=== PATIENT | male | born 1940 | race Caucasian/White ===

== ENCOUNTER 2016-11-10 15:35 | Emergency (ER) | payer OTHER ==
[2016-11-10 16:11] VITALS: RESP 16; O2SAT 94
--- NOTE | 2016-11-10 17:03 | EDPHY ---
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 This was purely mechanical not a syncopal episode. No loss of consciousness. No midline C-spine pain. No peripheral paresthesia, weakness, numbness. He is also complaining of pain just lateral to his right nipple. Has reproducible pain with palpation and inspiration. No abdominal pain. No dyspnea. REVIEW OF SYSTEMS: A ten point review of systems was performed and is negative with the exception of the items mentioned in the HPI PAST MEDICAL/SURGICAL HISTORY: Atrial fibrillation. Daily Pradaxa. 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 PHYSICAL EXAM 1) GENERAL: Well-developed, well-nourished, alert and oriented. Appears to be in no acute distress. Answering questions appropriately.He is telling jokes. Laughing. Appears quite well. 2) HEAD: Normocephalic, right temporal occipital region 4 cm laceration. 3) HEENT: Pupils equal, round, reactive to light bilaterally. Negative Horners. Nasopharynx, oropharynx, clear. No deformity or angulation of nose. No septal hematoma. No rhinorrhea. No oral trauma. Ears bilaterally with normal tympanic membranes. No hemotympanum. No fluid or blood in the external auditory canal. No raccoon eyes. No Odonnell sign. Teeth are normally aligned with no gross malocclusion, TMJ bilaterally nontender, facial bones nontender including the zygomatic arch, maxilla mandible. 4) NECK: No cervical collar is on. Posterior cervical spine is nontender, no stepoff, no effusion. Full range of motion which does not elicit any midline cervical spine pain, no posterior midline tenderness, no step-off. 5) LUNGS: Clear to auscultation bilaterally, no wheezes, no rhonchi, no retractions. No obvious signs of trauma. Tender to palpation lateral to his right nipple with no visible signs of trauma. No flaring, no grunting. Moving symmetrically. No crepitus. 6) HEART: Regular rate and rhythm, 7) ABDOMEN: No guarding, no rebound, no focal tenderness, no peritoneal signs, no signs of trauma, no ecchymosis 8) MUSCULOSKELETAL: Moving all extremities, no focal areas of tenderness, no obvious trauma. 9) BACK: No midline vertebral tenderness, no fluctuance, no step-off, no obvious trauma, no visual or palpable abnormality. 10) SKIN: scalp laceration DIFFERENTIAL DIAGNOSIS: Not necessarily in any particular order, my differential diagnosis includes, but is not limited to, concussion, skull fracture, intraparenchymal contusion, subarachnoid, subdural and epidural hematoma. The patient understands that this diagnosis is provisional and can never be 100% accurate. - Personal History Current Tetanus Diphtheria and Acellular Pertussis (TDAP): Yes Tetanus Vaccine Date: 2006 - Medical/Surgical History Hx Asthma: No Hx Chronic Respiratory Disease: No Hx Diabetes: No Hx Cardiac Disease: Yes Hx Renal Disease: No Hx Cirrhosis: Yes Hx Alcoholism: No Hx HIV/AIDS: No Hx Splenectomy or Spleen Trauma: No Other PMH: CARDIAC - a-fib, angioplasty, THYROID REMOVED , PSTD, MENTAL HEALTH - Social History Smoking Status: Never smoked Constitutional: Initial Vital Signs Temperature (C) 36.6 C 11/10/16 15:50 Heart Rate 68 11/10/16 15:50 Respiratory Rate 16 11/10/16 15:50 Blood Pressure 147/75 H 11/10/16 15:50 O2 Sat (%) 94 11/10/16 15:50 O2 Delivery Mode Room Air Allergies/Adverse Reactions: No Known Allergies Allergy (Verified 04/30/16 18:19) Home Medications: Medication Instructions Recorded Aspirin [Aspirin 81mg (*)] 81 mg PO HS 04/07/12 C/E/Zn/Cu/OM3/DHA/EPA/LUT/ZEAX 1 each PO BID 04/07/12 [Preservision Areds 2 Softgel] Dabigatran Etexilate Mesyl 150 mg PO BID 04/07/12 [Pradaxa 150 MG (*)] Multivitamins [Multivitamin (*)] 1 each PO DAILY 04/07/12 Sotalol HCl [Sotalol] 120 mg PO BID 04/07/12 Diazepam [Valium 5 MG (*)] 5 mg PO DAILY PRN 11/06/13 Herbals/Supplements -Info Only 1 each PO AD 11/06/13 Prazosin HCl 1 mg PO HS 04/30/16 Venlafaxine HCl [Venlafaxine 112.5 mg PO BID 04/30/16 37.5MG (*)] traMADol [Ultram 50 mg (*)] 50 - 100 mg PO DAILY PRN 04/30/16 Levothyroxine [Synthroid 137 mcg 137 mcg PO DAILY06 #30 tab 05/01/16 (*)] Atorvastatin Calcium [Lipitor 40 40 mg PO HS 08/21/16 mg (*)] Bisacodyl [Bisacodyl (*)] 10 mg PO PRN PRN 08/21/16 Cholecalciferol Vit D3 [Vitamin D3 2,000 units PO DAILY 08/21/16 2000 units tab (OTC)] Diltiazem HCl 30 mg PO BID 08/21/16 Hydrocodone/APAP 5/325 [[place] 2 each PO DAILY PRN 08/21/16 5/325 (*)] Magnesium Oxide [Magnesium Oxide 400 mg PO HS 08/21/16 400 mg (*)] Melatonin [Melatonin 3 MG (*)] 3 mg PO HS 08/21/16 Vitamin B Complex [B Complex] 1 each PO DAILY 08/21/16 diphenhydrAMINE [Benadryl 25 MG 25 mg PO HS 08/21/16 (*)] valACYclovir [Valtrex (*)] 1,000 mg PO DAILY PRN 08/21/16 Acetaminophen [Tylenol 325mg (*)] 325 - 650 mg PO Q4HRS PRN #0 tab 08/22/16 Pantoprazole Sodium [Protonix 40mg 40 mg PO DAILY #30 tab 08/22/16 (*)] Medical Decision Making - Diagnostics Imaging: CT Scan of the Head (Without Contrast) History: Trauma. Closed head injury following a fall in a 76-year-old male; comparison prior study March 25, 2014. Technique: Axial images were obtained from the base to the vertex. Axial images are obtained at 5 mm intervals and reformatted at 1.5 mm thickness. The examination is reviewed on the workstation at multiple window/level settings. Sagittal and coronal reformations are performed. Dose reduction techniques were utilized for this examination. Findings: There is no midline shift, hydrocephalus, parenchymal or subarachnoid bleeding. No extraaxial fluid collection is seen. There are no findings to suggest acute cortical ischemia. There is a scalp laceration seen in the right parieto-occipital region. Bone window evaluation does not show evidence of a skull fracture or pneumocephalus. The paranasal sinuses and mastoids are normally aerated. Impression: Negative noncontrast CT of the head with no intracranial posttraumatic sequela identified. Results called and discussed with Devin Mccabe PAC at 11/10/2016 17:34 Dictated By: Fox Keenan MD PA Chest and Right Ribs (5 views) History: Pain post trauma. Findings: PA chest - No evidence of pneumothorax, pleural effusion or pulmonary contusion. The mediastinum is not widened. Heart size is normal. Aortic tortuosity is noted. No obvious rib fracture is identified. Spinal degenerative changes are noted. Right ribs,4 views-a definite displaced rib fracture is not identified. Impression: Chest negative for acute abnormality with no displaced rib fracture identified and no pneumothorax seen. Images reviewed by myself Procedures: Procedure: Laceration repair. I explained the indications, risks and benefits for both laceration repair and anesthetic administration. Verbal consent was obtained from the patient . The laceration on the scalp was anesthetized using 0.5% bupivicaine with epinephrine . After anesthetic administered the patient was observed for a period of time and had no apparent adverse effects. The wound was cleaned, prepped, draped in normal sterile fashion and explored to its base. No foreign body seen, no foreign bodies palpated. There were no deep structures involved. No galea defects identified The wound was repaired with 6 mary. The wound repair was simple. The procedure was performed by myself. Patient has been informed that scarring will occur, although efforts have been made to minimize this. Procedure: Incentive spirometer teaching ED Course/Re-evaluation: Patient was re-evaluated with serial exams most recently at 6:10 p.m.. He is answering questions appropriately. No perseveration. He is walking around, smiling, making jokes. Discussed his negative CT imaging results. Discussed his chest x-ray. Has been given incentive spirometer. Discussed his head injury in the presence of Pradaxa. Offered admission For observation which he declines. He is here with his . I believe the 2 of them to have them to have decision-making capacity. He feels comfortable being discharged. She feels comfortable observing the patient. Usual customary head injury precautions and instructions provided. Departure - Departure Disposition: Home, Routine, Self-Care Clinical Impression: Scalp laceration Qualifiers: Encounter type: initial encounter Qualified Code(s): S01.01XA - Laceration without foreign body of scalp, initial encounter Head injury Qualifiers: Encounter type: initial encounter Qualified Code(s): S09.90XA - Unspecified injury of head, initial encounter Contusion of rib on right side Qualifiers: Encounter type: initial encounter Qualified Code(s): S20.211A - Contusion of right front wall of thorax, initial encounter Condition: Good Instructions: Head Injury (ED), Rib Contusion (ED) Additional Instructions: ALTHOUGH THERE IS NO EVIDENCE OF SERIOUS HEAD INJURY AT THIS TIME, DELAYED SIGNS CAN APPEAR 24 TO 48 HOURS AFTER INJURY. WE RECOMMEND THAT YOU DESIGNATE A FRIEND OR FAMILY MEMBER TO OBSERVE YOU OVER THE NEXT FEW DAYS TO ENSURE THAT YOUR CONDITION IS PROGRESSING NORMALLY. PLEASE RETURN TO THE EMERGENCY DEPARTMENT (ED) IMMEDIATELY IF YOU HAVE INCREASED HEADACHE, PERSISTENT HEADACHE , VOMITING, WEAKNESS, CONFUSION OR VISUAL PROBLEMS. Referrals: Tamera Baker MD [Primary Care Provider] - 1-2 days without fail Return, to the ER in 7 days for staple removal [Other] - 11/17/16
[2016-11-10] MEDS ORDERED: traMADol 50 MG TAB PO ONE (18:10)
[2016-11-10 18:21] VITALS: BP 143/87; PULSE 85; TEMP 99.5
== END 2016-11-17 11:00 | disposition home or self-care (01) ==
PROC: 0HQ0XZZ Repair Scalp Skin, External Approach (ICD-10-PCS; principal; 2016-11-10)
DX: S01.01XA Laceration without foreign body of scalp, initial encounter (principal); S20.211A Contusion of right front wall of thorax, initial encounter; Z79.82 Long term (current) use of aspirin; W01.0XXA Fall on same level from slipping, tripping and stumbling without subsequent striking against object, initial encounter; Y92.007 Garden or yard of unspecified non-institutional (private) residence as the place of occurrence of the external cause

== ENCOUNTER 2017-12-24 03:52 | Inpatient (IN) | payer OTHER ==
[2017-12-24] MEDS ORDERED: NS 1,000 ML IV ONE (04:13)
--- NOTE | 2017-12-24 04:13 | EDPHY ---
H & P Stated Complaint: BACK PAIN/ABD PAIN X 2 DAYS Time Seen by Provider: 12/24/17 04:13 HPI/ROS: HPI CHIEF COMPLAINT: Abdominal pain, back pain HISTORY OF PRESENT ILLNESS: Patient is a 77-year-old male, presents emergency room by private vehicle around 450 in the morning for abdominal pain and back pain. Patient states he was just in [place] taking photographs and this required him to go in and out of some braga that were heavy on bland. He had moved gait multiple times to go take pictures he states very heavy and he thinks maybe he injured his low back 2-3 days ago. Since then he has had ongoing low back pain. Pain is located lumbar spine. Does not radiate down his legs. Additionally reports that he has some abdominal pain and abdominal distension this is worse over the last 24 hr. He has no fever. He has not been vomiting. He denies diarrhea. States he ate a bowl of cereal for last night for dinner. He denies any chest pain or shortness of breath. Main complaint low back pain abdominal pain. Past Medical History: Hypertension, coronary artery disease without stents, atrial fib, PTSD Past Surgical History: Hernia repair, appendectomy Social History: Lives locally, at bedside. Denies drugs alcohol. Family History: Noncontributory ROS REVIEW OF SYSTEMS: A comprehensive 10 point review of systems is otherwise negative aside from elements mentioned in the history of present illness. Exam Constitutional elderly, frail triage nursing summary reviewed, vital signs reviewed, awake/alert. Eyes normal conjunctivae and sclera, EOMI, PERRLA. HENT normal inspection, atraumatic, dry mucus membranes, no epistaxis, neck supple/ no meningismus, no raccoon eyes. Respiratory clear to auscultation bilaterally, normal breath sounds, no respiratory distress, no wheezing. Cardiovascular rate normal, regular rhythm, no murmur, no edema, distal pulses normal. Gastrointestinal rather large protuberant distended abdomen tender throughout on palpation worse in the right lower quadrant Genitourinary no CVA tenderness. Musculoskeletal no midline vertebral tenderness, full range of motion, no calf swelling, no tenderness of extremities, no meningismus, good pulses, neurovascularly intact. Skin pink, warm, & dry, no rash, skin atraumatic. Neurologic awake, alert and oriented x 3, AAOx3, moves all 4 extremities equally, motor intact, sensory intact, CN II-XII intact, normal cerebellar, normal vision, normal speech. Psychiatric normal mood/affect. Heme/Lymph/Immune no lymphadenopathy. Differential diagnosis includes but is not limited to and in no particular order : Bowel obstruction, appendicitis, gallbladder disease, diverticulitis, colitis , enteritis, perforated viscus, gastritis, GERD, esophagitis, urinary tract infection, pyelonephritis, kidney stones Medical Decision Making: Plan for this patient due the abdominal pain will proceed with CT scan abdomen pelvis with IV contrast, check basic blood work, lactic acid, urinalysis and re-evaluate. Gentle IV hydration 1 L normal saline , IV Dilaudid for pain control. Re-evaluation: EKG interpretation by me on record in [facility] system. Impression time of EKG 4:34 a.m., sinus rhythm rate of [address] elevation no ST depression no significant T-wave abnormalities non specific intraventricular conduction delay. EKG is very similar previous EKGs in morphology CT scan abdomen pelvis with IV contrast called to me by Dr. Devin Peterson. No acute inflammatory process seen, except for some stranding around the pancreatic head No free air, no free fluid no evidence of diverticulitis or colitis. Large amount of stool burden. Labs reviewed. Elevated white blood count, additionally elevated lipase CT scan does show some stranding around the pancreatic head consistent with pancreatitis. This may be the cause of his abdominal pain and back pain. Plan will be for admission for pancreatitis to the medicine service. 0535: I did re-evaluate him at this time he is feeling better after IV Dilaudid and IV fluids. Urinalysis still pending. Source: Patient - Personal History Current Tetanus Diphtheria and Acellular Pertussis (TDAP): Yes Tetanus Vaccine Date: 2006 - Medical/Surgical History Hx Asthma: No Hx Chronic Respiratory Disease: No Hx Diabetes: No Hx Cardiac Disease: Yes Hx Renal Disease: No Hx Cirrhosis: Yes Hx Alcoholism: No Hx HIV/AIDS: No Hx Splenectomy or Spleen Trauma: No Other PMH: CARDIAC - a-fib, angioplasty X 2, THYROID REMOVED , PSTD, MENTAL HEALTH, APPY, HERNIA REPAIR - Social History Smoking Status: Never smoked Constitutional: Initial Vital Signs Temperature (C) 36.5 C 12/24/17 03:57 Heart Rate 71 12/24/17 03:57 Respiratory Rate 16 12/24/17 03:57 Blood Pressure 113/56 L 12/24/17 03:57 O2 Sat (%) 93 12/24/17 03:57 O2 Delivery Mode Room Air O2 (L/minute) 2 Allergies/Adverse Reactions: No Known Allergies Allergy (Verified 04/30/16 18:19) Home Medications: Medication Instructions Recorded C/E/Zn/Cu/OM3/DHA/EPA/LUT/ZEAX 1 each PO BID 04/07/12 [Preservision Areds 2 Softgel] Dabigatran Etexilate Mesyl 150 mg PO BID 04/07/12 [Pradaxa 150 MG (*)] Multivitamins [Multivitamin (*)] 1 each PO DAILY 04/07/12 Diazepam [Valium 5 MG (*)] 5 mg PO DAILY PRN 11/06/13 Herbals/Supplements -Info Only 1 each PO AD 11/06/13 Levothyroxine [Synthroid 137 mcg 137 mcg PO DAILY06 #30 tab 05/01/16 (*)] Atorvastatin Calcium [Lipitor 40 40 mg PO HS 08/21/16 mg (*)] Bisacodyl [Bisacodyl (*)] 10 mg PO PRN PRN 08/21/16 Cholecalciferol Vit D3 [Vitamin D3 2,000 units PO DAILY 08/21/16 2000 units tab (OTC)] Diltiazem HCl 30 mg PO BID 08/21/16 Magnesium Oxide [Magnesium Oxide 400 mg PO HS 08/21/16 400 mg (*)] Melatonin [Melatonin 3 MG (*)] 3 mg PO HS 08/21/16 Vitamin B Complex [B Complex] 1 each PO DAILY 08/21/16 diphenhydrAMINE [Benadryl 25 MG 25 mg PO HS 08/21/16 (*)] valACYclovir [Valtrex (*)] 1,000 mg PO DAILY PRN 08/21/16 Acetaminophen [Tylenol 325mg (*)] 325 - 650 mg PO Q4HRS PRN #0 tab 08/22/16 Pantoprazole Sodium [Protonix 40mg 40 mg PO DAILY #30 tab 08/22/16 (*)] Prazosin HCl [Minipress] 4 mg PO HS 12/24/17 Sotalol HCl [Betapace 80 MG (*)] 80 mg PO BID 12/24/17 Venlafaxine HCl [Venlafaxine 75MG 150 mg PO BID 12/24/17 (*)] Medical Decision Making - Data Points Laboratory Results: Laboratory Results 12/24/17 04:25 12/24/17 04:25 Medications Given: Ampicillin Sodium/Sulbactam Sodium (Unasyn) 3 gm IV Q6HRS ADAN PRN Reason: Protocol Stop: 01/24/18 17:59 Last Admin: 12/25/17 18:17 Dose: 3 gm Atorvastatin Calcium (Lipitor) 40 mg PO HS ADAN Stop: 06/22/18 20:59 Last Admin: 12/24/17 22:33 Dose: 40 mg Bisacodyl (Dulcolax Rectal) 10 mg VA DAILY PRN; Protocol PRN Reason: Constipation Stop: 06/22/18 06:33 Last Admin: 12/24/17 17:13 Dose: 10 mg Diltiazem HCl (Cardizem Immediate Release) 30 mg PO BID ADAN Stop: 06/22/18 20:59 Last Admin: 12/25/17 07:44 Dose: 30 mg Hydromorphone/Sodium Chloride (Hydromorphone) 0.5 - 1 mg IVP Q3HRS PRN PRN Reason: Pain, Severe Stop: 01/03/18 06:40 Last Admin: 12/25/17 07:56 Dose: 0.5 mg Sodium Chloride (Ns) 1,000 mls @ 125 mls/hr IV CONT ADAN Stop: 06/22/18 07:59 Last Admin: 12/25/17 07:39 Dose: 1,000 mls Levothyroxine Sodium (Synthroid) 137 mcg PO DAILY06 ADAN Stop: 06/23/18 05:59 Last Admin: 12/25/17 06:28 Dose: 137 mcg Melatonin (Melatonin) 3 mg PO HS ADAN Stop: 06/22/18 20:59 Last Admin: 12/24/17 22:34 Dose: 3 mg Pantoprazole Sodium (Protonix) 40 mg PO DAILY ADAN Stop: 06/23/18 08:59 Last Admin: 12/25/17 07:44 Dose: 40 mg Senna/Docusate Sodium (Senokot-S) 1 - 2 tab PO BID PRN; Protocol PRN Reason: Constipation Stop: 06/22/18 08:59 Last Admin: 12/25/17 07:53 Dose: 2 tab Sotalol HCl (Betapace) 80 mg PO BID ADAN Stop: 06/22/18 20:59 Last Admin: 12/25/17 07:44 Dose: 80 mg Venlafaxine HCl (Venlafaxine Hcl) 150 mg PO BID ADAN Stop: 06/22/18 20:59 Last Admin: 12/25/17 07:44 Dose: 150 mg Vitamin B Complex (Vitamin B Complex) 1 ea PO DAILY ADAN Stop: 06/23/18 08:59 Last Admin: 12/25/17 07:44 Dose: 1 ea Discontinued Medications Dabigatran (Pradaxa) 150 mg PO BID ADAN Stop: 06/22/18 20:59 Last Admin: 12/25/17 07:44 Dose: 150 mg Hydromorphone HCl (Dilaudid) 0.5 mg IVP EDNOW ONE Stop: 12/24/17 04:23 Last Admin: 12/24/17 04:32 Dose: 0.5 mg Sodium Chloride (Ns) 1,000 mls @ 0 mls/hr IV EDNOW ONE; Wide Open PRN Reason: Protocol Stop: 12/24/17 04:14 Last Admin: 12/24/17 04:31 Dose: 1,000 mls Departure - Departure [facility] Clinical Impression: Pancreatitis Qualifiers: Chronicity: acute Pancreatitis type: other Acute pancreatitis complication: unspecified Qualified Code(s): K85.80 - Other acute pancreatitis without necrosis or infection Abdominal pain Qualifiers: Abdominal location: generalized Qualified Code(s): R10.84 - Generalized abdominal pain Condition: Fair
[2017-12-24] MEDS ORDERED: HYDROmorphONE/DILAUDID 2 MG/ML INJ IVP ONE (04:22)
[2017-12-24] MEDS ORDERED: IOPAMIDOL (ISOVUE-300) 100 ML BTL ONE (04:32)
[2017-12-24 04:44] LABS: PLATELET COUNT 162 10^3/uL (150-400)
[2017-12-24 04:54] LABS: INR 1.5 (0.83-1.16); PROTIME(PATIENT) 18.3 SEC (12.0-15.0)
[2017-12-24] MEDS ORDERED: ACETAMINOPHEN 650 MG SUPP PR PRN (06:11)
[2017-12-24] MEDS ORDERED: HYDROmorphONE/DILAUDID 1 MG/ML INJ IVP PRN (06:11)
[2017-12-24] MEDS ORDERED: ONDANSETRON 4 MG/2 ML VIAL IVP PRN (06:11)
[2017-12-24] MEDS ORDERED: BISACODYL 10 MG SUPP PR PRN (06:34)
[2017-12-24] MEDS ORDERED: LACTULOSE 20 GM/30 ML UDCUP PO PRN (06:34)
[2017-12-24] MEDS ORDERED: MAGNESIUM HYDROXIDE 30 ML UDCUP PO PRN (06:34)
[2017-12-24] MEDS ORDERED: POLYETHYLENE GLYCOL 3350 17 GM PKT PO PRN (06:34)
[2017-12-24] MEDS ORDERED: SENNOSIDES/DOCUSATE SODIUM TAB PO PRN (06:35)
--- NOTE | 2017-12-24 07:44 | PDGENHP ---
History and Physical - Chief Complaint Abdominal pain, back pain - History of Present Illness Source-patient provides history appears reliable. EMR was reviewed and case discussed with ED provider. HPI - this is a pleasant 77-year-old gentleman with past medical history significant for coronary artery disease, atrial fibrillation status post ablation on chronic anticoagulation, PTSD, HTN who presents emergency department today with complaints of right-sided abdominal pain and low back pain. Patient reports that he was out [place] on trying to take pictures and working on range. 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 He denies any lower extremity numbness tingling or focal weakness. No urinary of fecal incontinence or retention. This morning approximately 0300 patient reports that he was unable to go to sleep [facility] due to acute and sudden onset of right-sided abdominal pain. Patient also is complaining of significant distention in his abdomen. He has not had any fevers, chills, sweats. He denies any nausea/vomiting/diarrhea. Patient notes that he has felt a little backed up after taking [place] yesterday for pain however, he has had a bowel movement yesterday.. He has not had any melena or hematochezia. Patient denies any history of alcohol intake recently. He has no known history of gallstones or biliary colic. Patient states that he tolerated his meals yesterday without any development or increase in abdominal pain. History Information - Allergies/Home Medication List Allergies/Adverse Reactions: No Known Allergies Allergy (Verified 04/30/16 18:19) Home Medications: Aspirin [Aspirin 81mg (*)] 81 mg PO HS 04/07/12 [Last Taken 08/20/16] C/E/Zn/Cu/OM3/DHA/EPA/LUT/ZEAX [Preservision Areds 2 Softgel] 1 each PO BID 07/09 [Last Taken 08/20/16 21:00] Dabigatran Etexilate Mesyl [Pradaxa 150 MG (*)] 150 mg PO BID 04/07/12 [Last Taken 08/18/16 21:00] Multivitamins [Multivitamin (*)] 1 each PO DAILY 04/07/12 [Last Taken 08/20/16] Sotalol HCl [Sotalol] 120 mg PO BID 04/07/12 [Last Taken 08/20/16 21:00] Diazepam [Valium 5 MG (*)] 5 mg PO DAILY PRN 11/06/13 [Last Taken 08/20/16 21:00 ] Herbals/Supplements -Info Only 1 each PO AD 11/06/13 [Last Taken Unknown] Prazosin HCl 1 mg PO HS 04/30/16 [Last Taken 08/20/16] Venlafaxine HCl [Venlafaxine 37.5MG (*)] 112.5 mg PO BID 04/30/16 [Last Taken 21:00] traMADol [Ultram 50 mg (*)] 50 - 100 mg PO DAILY PRN 04/30/16 [Last Taken ] Atorvastatin Calcium [Lipitor 40 mg (*)] 40 mg PO HS 08/21/16 [Last Taken ] Bisacodyl [Bisacodyl (*)] 10 mg PO PRN PRN 08/21/16 [Last Taken Unknown] Cholecalciferol Vit D3 [Vitamin D3 2000 units tab (OTC)] 2,000 units PO DAILY [Last Taken 08/20/16] Diltiazem HCl 30 mg PO BID 08/21/16 [Last Taken 08/20/16 21:00] Hydrocodone/APAP 5/325 [[place] 5/325 (*)] 2 each PO DAILY PRN 08/21/16 [Last Taken 08/14/16] Magnesium Oxide [Magnesium Oxide 400 mg (*)] 400 mg PO HS 08/21/16 [Last Taken 08/20/16] Melatonin [Melatonin 3 MG (*)] 3 mg PO HS 08/21/16 [Last Taken 08/20/16] Vitamin B Complex [B Complex] 1 each PO DAILY 08/21/16 [Last Taken Unknown] diphenhydrAMINE [Benadryl 25 MG (*)] 25 mg PO HS 08/21/16 [Last Taken 08/20/16] valACYclovir [Valtrex (*)] 1,000 mg PO DAILY PRN 08/21/16 [Last Taken Unknown] I have personally reviewed and updated: family history, medical history, social history, surgical history - Past Medical History Additional medical history: HTN, CAD, atrial fibrillation status post ablation on chronic anticoagulation, PTSD - Surgical History Additional surgical history: Hernia repair, appendectomy, tonsillectomy and adenoidectomy, cardiac ablation - Family History Positive for: CAD (Both parents .) Additional family history: Patient denies any family history of gallbladder disease, colon cancer or pancreatitis. - Social History Smoking Status: Never smoked Alcohol Use: Rarely Drug Use: None Additional social history: Patient is and lives with his . 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 Cor status is full. Review of Systems Review of Systems: ROS: 10pt was reviewed & negative except for what was stated in HPI & below Constitutional: Denies: chills, fever, weight loss EENMT: Reports: no symptoms Cardiac: Reports: no symptoms Respiratory: Reports: no symptoms Gastrointestinal: Reports: abdominal pain, abdominal distention, constipation, other (See HPI). Denies: vomitting, black stools, diarrhea, nausea Genitourinary: Reports: no symptoms Muscolosketal: Reports: muscle pain (Low back pain lumbar) Skin: Reports: no symptoms Neurological: Reports: depressed (Patient with history of depression and PTSD. He denies any SI or HI.). Denies: headache, numbness, tingling Hematologic/Lymphatic: Reports: no symptoms Physical Exam Physical Exam: Temp Pulse Resp BP Pulse Ox 37.0 C 68 18 123/68 H 88 L 12/24/17 06:24 12/24/17 06:24 12/24/17 04:34 12/24/17 06:24 12/24/17 06:24 Constitutional: no apparent distress (NAD When resting quietly. Patient does appear uncomfortable with any movement.), obese, other (Pleasant elderly appearing gentleman) Eyes: PERRL, anicteric sclera, EOMI, No scleral injection Ears, Nose, Mouth, Throat: no oral mucosal ulcers, dry mucous membranes, other ( No nasal discharge), No poor dentition Cardiovascular: regular rate and rhythym, no murmur, rub, or gallop, pulses symmetric bilaterally, edema (Trace pretibial bilaterally.) Peripheral Pulses: 1+: dorsalis-pedis (R), dorsalis-pedis (L) Respiratory: no respiratory distress, no rales or rhonchi, clear to auscultation , No expiratory wheeze Gastrointestinal: normoactive bowel sounds, tenderness (Patient with significant tenderness to light palpation the right lateral abdomen and right lower quadrant.), distension, other (Obese abdomen), No singleton's sign, No guarding, No rebound Skin: warm, normal color, no rashes or abrasions, No erythema Musculoskeletal: full muscle strength, abnormal gait (Slightly shuffling gait.) , other (Patient with some decreased range of motion lumbar spine and difficulty with mobilization.) Neurologic: AAOx3, sensation intact bilaterally, No weakness, No numbness, No facial droop Psychiatric: interacting appropriately, not anxious, not encephalopathic, thought process linear, other (Patient pleasant and cooperative. Thought process content and questions are appropriate.) Lab Data & Imaging Review 12/24/17 04:25 12/24/17 04:25 WBC 21.12 10^3/uL (3.80-9.50) H 12/24/17 04:25 RBC 4.24 10^6/uL (4.40-6.38) L 12/24/17 04:25 Hgb 14.4 g/dL (13.7-17.5) 12/24/17 04:25 POC Hgb 15.3 gm/dL (13.7-17.5) 12/24/17 04:31 Hct 42.2 % (40.0-51.0) 12/24/17 04:25 POC Hct 45 % (40-51) 12/24/17 04:31 MCV 99.5 fL (81.5-99.8) 12/24/17 04:25 MCH 34.0 pg (27.9-34.1) 12/24/17 04:25 MCHC 34.1 g/dL (32.4-36.7) 12/24/17 04:25 RDW 13.6 % (11.5-15.2) 12/24/17 04:25 Plt Count 162 10^3/uL (150-400) 12/24/17 04:25 MPV 10.7 fL (8.7-11.7) 12/24/17 04:25 Neut % (Auto) 88.9 % (39.3-74.2) H 12/24/17 04:25 Lymph % (Auto) 4.7 % (15.0-45.0) L 12/24/17 04:25 [place] % (Auto) 5.4 % (4.5-13.0) 12/24/17 04:25 Eos % (Auto) 0.0 % (0.6-7.6) L 12/24/17 04:25 Baso % (Auto) 0.1 % (0.3-1.7) L 12/24/17 04:25 Nucleat RBC Rel Count 0.0 % (0.0-0.2) 12/24/17 04:25 Absolute Neuts (auto) 18.76 10^3/uL (1.70-6.50) H 12/24/17 04:25 Absolute Lymphs (auto) 1.00 10^3/uL (1.00-3.00) 12/24/17 04:25 Absolute Monos (auto) 1.14 10^3/uL (0.30-0.80) H 12/24/17 04:25 Absolute Eos (auto) 0.00 10^3/uL (0.03-0.40) L 12/24/17 04:25 Absolute Basos (auto) 0.03 10^3/uL (0.02-0.10) 12/24/17 04:25 Absolute Nucleated RBC 0.00 10^3/uL (0-0.01) 12/24/17 04:25 Immature Gran % 0.9 % (0.0-1.1) 12/24/17 04:25 Immature Gran # 0.19 10^3/uL (0.00-0.10) H 12/24/17 04:25 PT 18.3 SEC (12.0-15.0) H 12/24/17 04:25 INR 1.50 (0.83-1.16) H 12/24/17 04:25 APTT 34.7 SEC (23.0-38.0) 12/24/17 04:25 VBG Lactic Acid 1.9 mmol/L (0.7-2.1) 12/24/17 04:25 POC Sodium 136 mEq/L (135-145) 12/24/17 04:31 Sodium 137 mEq/L (135-145) 12/24/17 04:25 POC Potassium 3.8 mEq/L (3.3-5.0) 12/24/17 04:31 Potassium 4.2 mEq/L (3.5-5.2) 12/24/17 04:25 POC Chloride 101 mEq/L (97-110) 12/24/17 04:31 Chloride 103 mEq/L (97-110) 12/24/17 04:25 Carbon Dioxide 21 mEq/l (22-31) L 12/24/17 04:25 Anion Gap 13 mEq/L (8-16) 12/24/17 04:25 POC BUN 24 mg/dL (7-23) H 12/24/17 04:31 BUN 23 mg/dL (7-23) 12/24/17 04:25 Creatinine 0.9 mg/dL (0.7-1.3) 12/24/17 04:25 POC Creatinine 1.0 mg/dL (0.7-1.3) 12/24/17 04:31 Estimated GFR > 60 12/24/17 04:25 Glucose 113 mg/dL (70-100) H 12/24/17 04:25 POC Glucose 130 mg/dL (70-100) H 12/24/17 04:31 Calcium 9.3 mg/dL (8.5-10.4) 12/24/17 04:25 Total Bilirubin 1.2 mg/dL (0.1-1.4) 12/24/17 04:25 Conjugated Bilirubin 0.4 mg/dL (0.0-0.5) 12/24/17 04:25 Unconjugated Bilirubin 0.8 mg/dL (0.0-1.1) 12/24/17 04:25 AST 96 IU/L (17-59) H 12/24/17 04:25 ALT 165 IU/L (21-72) H 12/24/17 04:25 Alkaline Phosphatase 65 IU/L (38-126) 12/24/17 04:25 Troponin I < 0.012 ng/mL (0.000-0.034) 12/24/17 04:25 Total Protein 7.0 g/dL (6.3-8.2) 12/24/17 04:25 Albumin 4.2 g/dL (3.5-5.0) 12/24/17 04:25 Lipase 3951 IU/L (23-300) H 12/24/17 04:25 Urine Color YELLOW 12/24/17 05:55 Urine Appearance CLEAR 12/24/17 05:55 Urine pH 5.0 (5.0-7.5) 12/24/17 05:55 Ur Specific Gilbert > 1.035 (1.002-1.030) H 12/24/17 05:55 Urine Protein NEGATIVE (NEGATIVE) 12/24/17 05:55 Urine Ketones NEGATIVE (NEGATIVE) 12/24/17 05:55 Urine Blood NEGATIVE (NEGATIVE) 12/24/17 05:55 Urine Nitrate NEGATIVE (NEGATIVE) 12/24/17 05:55 Urine Bilirubin NEGATIVE (NEGATIVE) 12/24/17 05:55 Urine Urobilinogen NEGATIVE EU (0.2-1.0) 12/24/17 05:55 Ur Leukocyte Esterase NEGATIVE (NEGATIVE) 12/24/17 05:55 Urine Glucose NEGATIVE (NEGATIVE) 12/24/17 05:55 Urine Opiates Screen NON-NEGATIVE (NEGATIVE) H 12/24/17 05:55 Urine Barbiturates NEGATIVE (NEGATIVE) 12/24/17 05:55 Ur Phencyclidine Scrn NEGATIVE (NEGATIVE) 12/24/17 05:55 Ur Amphetamine Screen NEGATIVE (NEGATIVE) 12/24/17 05:55 U Benzodiazepines Scrn NEGATIVE (NEGATIVE) 12/24/17 05:55 Urine Cocaine Screen NEGATIVE (NEGATIVE) 12/24/17 05:55 U Marijuana (THC) Screen NEGATIVE (NEGATIVE) 12/24/17 05:55 Ethyl Alcohol < 10 mg/dL (0-10) 12/24/17 04:25 Imaging Review: CT abdomen pelvis reviewed myself. Preliminary Radiology report was also reviewed and noted below contipated, ?stranding near head of panc, asc change, renal cysts, nodular prostate, degen change, atx lung base Assessment & Plan Assessment: Very pleasant 77-year-old gentleman (patient goes by the name of Atul) who presents emergency department with complaints of acute abdominal pain and ongoing low back pain. #Pancreatitis (Acute) - patient without any evidence of obstructive process on CT abdomen pelvis. Denies any history of alcohol dependence. Will review his medication list closely for any potential instigators, cursory review of patient 's home medication list causes can be pravastatin, Protonix. Will request pharmacy consultation to assist with review. Patient will remain NPO at this time for bowel rest and this was explained to the patient. He will receive IV fluid hydration. Consider HIDA scan when patient's pancreatitis has resolved. #Abdominal pain (Acute) - patient without significant epigastric or upper abdominal pain. Majority of patient's discomfort is located on the right lateral and right lower quadrant with minimal palpation. He is a little distended and he does have show have signs of constipation on CT. On will consider use of suppositories and enema while patient is NPO. He is chronically on narcotic therapy and would recommend the patient be discharged on on a scheduled bowel regimen at home.patient's majority of abdominal pain however is in the right lower quadrant I suspect related more to constipation then pancreatitis #Constipation - see plan above #Leukocytosis - likely secondary to patient's acute pancreatitis. He is currently afebrile and denies any other symptoms on concerning for of alternate infectious sources. Will plan to repeat a CBC in the morning. #Transaminitis - minimally elevated. Patient's baseline LFTs are unknown at this time but suspect this is related to acute pancreatitis. Further plan as noted above will monitor LFTs. #Low back pain - is likely secondary to strain. PT OT consultation. Chronic medical issues #Atrial fibrillation status post ablation - patient heart rate is controlled at this time he will be on monitored on pulse ox only at this time as he does sound fairly regular. He normally is on a regimen of on sotalol and diltiazem for rate control. He status post ablation. Will monitor closely and resume diet once patient's pancreatitis has settled down and diet can be advanced. Patient is chronically on Pradaxa for anticoagulation hopefully we can resume shortly after short P NPO status. #Benign essential hypertension - blood pressure is acceptable at this time. Will monitor closely with use of opiates for pain management. IV fluids as noted above. Holding patient's home antihypertensives as he will be NPO. #CAD - holding statin, aspirin and beta-blockers while NPO. #Depression/PTSD - patient without any SI or HI is very pleasant and cooperative. Resume venlafaxine when diet advanced. Resume pravastatin once patient's diet advanced. # hypothyroidism resume his levothyroxine once diet is advanced. # GERD-holding PPI at this time in setting of acute pancreatitis FEN - IV fluids. NPO. Electrolyte monitoring and replacement p.r.n.. PPX-patient has not had his daily Pradaxa will hold off at this time given a trial of NPO status until his pancreatitis improves. SCD. Cor status-full Disposition-patient admitted to observation at this time and will reassess later this afternoon.
[2017-12-24] MEDS ORDERED: valACYclovir 500 MG TAB PO PRN (11:05)
[2017-12-24] MEDS: NS 1,000 ML IV SCH (11:19)
--- NOTE | 2017-12-24 17:04 | ASMTCMCOM ---
CM Note CM Note Notes: Chart reviewed. 77 year old male in with back pain. R/O pancreatitis. Discharge needs to be determined. Anticipate he will be independent. CM to follow. Date Signed: 12/24/2017 05:03 PM Electronically Signed By:Anabelle Smart RN
[2017-12-24] MEDS: VENLAFAXINE HCL 75 MG TAB PO SCH (22:33)
[2017-12-24] MEDS: DABIGATRAN ETEXILATE MESYL 150 MG CAP PO SCH (22:33)
[2017-12-24] MEDS: SOTALOL HCL 80 MG TAB PO SCH (22:33)
[2017-12-24] MEDS: ATORVASTATIN CALCIUM 40 MG TAB PO SCH (22:33)
[2017-12-24] MEDS: DILTIAZEM 30 MG TAB PO SCH (22:33)
[2017-12-24] MEDS: MELATONIN 3 MG TAB PO SCH (22:34)
[2017-12-25 05:00] LABS: PLATELET COUNT 165 10^3/uL (150-400)
[2017-12-25] MEDS: LEVOTHYROXINE 137 MCG TAB PO SCH (06:28)
[2017-12-25] MEDS: NS 1,000 ML IV SCH (07:39)
[2017-12-25] MEDS: DILTIAZEM 30 MG TAB PO SCH ×2 (07:44→20:30)
[2017-12-25] MEDS: DABIGATRAN ETEXILATE MESYL 150 MG CAP PO SCH (07:44)
[2017-12-25] MEDS: SOTALOL HCL 80 MG TAB PO SCH ×2 (07:44→20:31)
[2017-12-25] MEDS: VENLAFAXINE HCL 75 MG TAB PO SCH ×2 (07:44→20:30)
[2017-12-25] MEDS: PANTOPRAZOLE SODIUM 40 MG TAB PO SCH (07:44)
[2017-12-25] MEDS: VITAMIN B COMPLEX 1 EA CAP/TAB PO SCH (07:44)
[2017-12-25] MEDS: HYDROmorphone HCL/NS 0.5 MG/ML SYR IVP PRN ×2 (07:56→20:34)
--- NOTE | 2017-12-25 11:36 | HOSPPROG ---
Hospitalist Progress Note Assessment/Plan: DIAGNOSES: -acute gallstone pancreatitis without complications, * Clinically resolving well at this time -evidence of cholecystitis and gallstones by ultrasound * Cholecystectomy will be indicated -history of AFib status post ablation, stable at this time -history of PTSD no issues here at this time I reviewed the clinical progress and radiologic findings with the patient and his . I have discussed with them that the cause of this episode is probably a passed gallstone. In order to prevent future episodes cholecystectomy will be indicated. We have reviewed the nature of the surgery, the expected recovery, the possible complications. He would like to speak with a surgeon. The patient takes Pradaxa and has received that medicine here, so that surgery will need to be delayed until he is off that medicine long enough for safety. PLANS: -will try some oral fluids at this time to see how he tolerates that -will hold his Pradaxa at this time in preparation for anticipated surgery in the near future -I reviewed the case with Dr. Av Yadav will see the patient today SUBJECTIVE: Feels quite a bit better with very minimal epigastric pain at this point, no back pain, no fever symptoms no vomiting Is started feels slightly hungry OBJECTIVE Vitals reviewed: Stable without fever Inspector Aide, my review: Exam: alert oriented skin warm dry color ok resps not labored lungs clear BSs heart regular abd soft nondistended with mild epigastric tenderness without guarding rebound or palpable abnormality, bowel sounds present limbs warm, no edema iv site ok Laboratory data: White blood cell count improved but remains elevated at 17,000 with predominance in neutrophils Renal function and electrolytes stable, liver enzymes slightly improved from the ER sample I ordered triglyceride levels and these are normal Radiology data: I reviewed his ultrasound of abdomen done today which does show evidence of gallbladder wall thickening, gallstones, and sludge Objective: Vital Signs Temp Pulse Resp BP Pulse Ox 36.8 C 68 16 110/56 L 93 12/25/17 09:05 12/25/17 09:05 12/25/17 09:05 12/25/17 09:05 12/25/17 09:05 Laboratory Results 12/25/17 04:36 12/25/17 04:36 12/24/17 12/25/17 12/26/17 06:59 06:59 06:59 Intake Total 1000 Output Total 400 Balance 1000 -400 PT 18.3 SEC (12.0-15.0) H 12/24/17 04:25 INR 1.50 (0.83-1.16) H 12/24/17 04:25 - Time Spent With Patient Time Spent with Patient: greater than 35 minutes Time Spent with Patient: Greater than 35 minutes spent on this patients care, greater than 50% of time spent counseling, educating, and coordinating care regarding the above mentioned plan. ICD10 Worksheet Patient Problems: Problems Problem Status Onset Abdominal pain Acute Pancreatitis Acute Anxiety disorder Active Atrial fibrillation and flutter Active Benign hypertension Active CAD - Coronary arteriosclerosis Active Dyslipidemia Active A-fib Acute
--- NOTE | 2017-12-25 15:15 | PDCONSULT ---
Audiology Technician Note: Surgical Consultation requested by Dr. 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 He was found to have pancreatitis with an elevated lipase and stranding around the head of the pancreas. An ultrasound this morning confirmed gallstones and sludge. He feels better now and has been NPO since admission PMH: Afib/flutter s/p ablation (Dr. Grullon) 2015 arthroscopic knee surgery lap appendectomy umbilical hernia repair with mesh hx CAD, HTN, depression (suicidal in 2013), PTSD, CINDY meds: Pradaxa 150 mg po BID (last dose this morning) Sotalol 120 mg BID Diazepam 5 mg po daily prn Prazosin 1 mg po qHS Venlafaxine 112.5 mg po BID Tramadol 50-100 mg po daily Atorvastatin 40 mg po qHS Diltiazem 30 mg po BID Hydrocodone 5/325 2 po qday prn Benedryl 25 mg po qHS Melatonin 3 mg po qHS Valtrex 1000mg po daily prn allergies: NKDA SH: to [place], retired, [facility] [place] with [employer] [place] exposure FH: [place] ROS: denies chest pain/dyspnea/cough, emesis, melena/hematochezia, recent weight loss, jaundice PE: BP 110/55 P 60 R 16 T 36.8 O2sat 91% RA clinically NSR pleasant gentleman in NAD HEENT: no scleral icterus chest: RRR Abd: soft/mild RUQ tenderness to palpation no mass or bruit, no hepatomegaly Imaging reviewed with patient and his (CT/ultrasound) labs: lipase 3950 PT 18.3 INR 1.5 alb 3.0 bili 1.2 AST 47 ALT 95 wbc 17.6 Hgb 13.5 Hct 39.8 Imp: pancreatitis/ clinically improved, likely due to gallstones, possible cholecystitis HTN Hyperlipidemia Depression chronic pain Hx Afib/flutter currently in NSR Rec: hold Pradaxa x 48 hour prior to surgery sips of clear liquids for now start empiric antibiotics for presumed cholecystitis (Unasyn 3 gm IVPB q6) Surgery SaturdayDecember 27 12:30 lap sweta with JOB Yadav MD, FACS
[2017-12-25] MEDS: AMPICILLIN/SULBACTAM 3 GM VIAL IV SCH (18:17)
[2017-12-25] MEDS: ATORVASTATIN CALCIUM 40 MG TAB PO SCH (20:30)
[2017-12-25] MEDS: MELATONIN 3 MG TAB PO SCH (20:30)
[2017-12-26] MEDS: AMPICILLIN/SULBACTAM 3 GM VIAL IV SCH ×4 (00:08→17:30)
[2017-12-26] MEDS: DIAZEPAM 5 MG TAB PO PRN (04:55)
[2017-12-26] MEDS: LEVOTHYROXINE 137 MCG TAB PO SCH (05:00)
[2017-12-26 05:02] LABS: PLATELET COUNT 152 10^3/uL (150-400)
--- NOTE | 2017-12-26 06:55 | SOAPPROG ---
SOAP Progress Note Assessment/Plan: Assessment:pancreatitis likely secondary to gallstones clinically improved with persistent low grade temps and leukocytosis Plan: lap cholecystectomy + IOC scheduled for tomorrow 12:30 continue Unasyn trial of full liquids 12/26/17 06:53 Subjective: resting comfortably/denies pain Objective: Vital Signs Temp Pulse Resp BP Pulse Ox 37.6 C 57 L 15 124/66 H 89 L 12/26/17 04:31 12/26/17 04:31 12/26/17 04:31 12/26/17 04:31 12/26/17 04:31 Laboratory Results 12/26/17 04:28 12/25/17 04:36 12/25/17 12/26/17 12/27/17 05:59 05:59 05:59 Intake Total 1000 3070 Output Total 400 1225 Balance 600 1845 PT 18.3 SEC (12.0-15.0) H 12/24/17 04:25 INR 1.50 (0.83-1.16) H 12/24/17 04:25 - Pending Discharge Pending Discharge Within 24 Hours: No Pending Discharge Within 48 Hours: No Physical Exam - Physical Exam General Appearance: alert, no apparent distress Cardiac/Chest: regular rate, rhythm Abdomen: non-tender, soft, distended Male Genitalia: deferred Rectal: deferred Neuro/Psych: normal mood/affect, oriented x 3 ICD10 Worksheet Patient Problems: Problems Problem Status Onset Anxiety disorder Active Atrial fibrillation and flutter Active Benign hypertension Active CAD - Coronary arteriosclerosis Active Dyslipidemia Active A-fib Acute Abdominal pain Acute Pancreatitis Acute
--- NOTE | 2017-12-26 06:59 | PDMN ---
Medical Necessity Medical necessity: M250 pancreatitis: abd pain with elevated Lipase U/S shows peripancreatic fluid, sm. ascites, hepatomegaly, gallbladder wall thickening, gallstones and sludge. - M555 gallbladder inflammation or stone: abd pain with elevated wbc> 10,000, elevated liver function tests, sgy consult rec: hold Pradaxa X 48 hours, prior to sgy, abx, clears and sgy pending ( Lap sweta)
[2017-12-26] MEDS: VITAMIN B COMPLEX 1 EA CAP/TAB PO SCH (07:46)
[2017-12-26] MEDS: VENLAFAXINE HCL 75 MG TAB PO SCH ×2 (07:47→21:27)
[2017-12-26] MEDS: DILTIAZEM 30 MG TAB PO SCH ×2 (07:47→21:27)
[2017-12-26] MEDS: PANTOPRAZOLE SODIUM 40 MG TAB PO SCH (07:48)
[2017-12-26] MEDS: SOTALOL HCL 80 MG TAB PO SCH ×2 (10:19→21:27)
--- NOTE | 2017-12-26 11:38 | HOSPPROG ---
Hospitalist Progress Note Assessment/Plan: DIAGNOSES: -acute gallstone pancreatitis without complications, * Clinically resolving well at this time -evidence of cholecystitis and gallstones by ultrasound * Cholecystectomy will be indicated; antibiotics indicated which he is receiving -history of AFib status post ablation, stable at this time * Chronic anticoagulation with Pradaxa currently held for surgery which is scheduled for tomorrow -history of PTSD no issues here at this time -PREOP RISK ASSESSMENT * Chronic stable atrial fibrillation with good rate control and absence of heart failure. Otherwise no history of or symptoms of any cardiac or pulmonary issues, bleeding disorders, thromboembolic disease, renal or liver disease or other issues that would indicate significant surgical risk or need for further assessment prior to cholecystectomy * In terms of activity level he was doing yard work a few days ago, walks a mile daily without difficulty, no problems going up stairs * Has had prior surgeries without anesthesia difficulties PLANS: -try low-fat solid foods diet at this time, NPO after midnight -will hold his Pradaxa at this time in preparation for anticipated surgery scheduled tomorrow at mid day -low-fat diet for the next week or 2 SUBJECTIVE: Pain completely resolved, is now hungry No fevers or other acute symptoms OBJECTIVE Vitals reviewed: Stable without fever Commercial Accountant, my review: Exam: alert oriented skin warm dry color ok resps not labored lungs clear BSs heart regular abd soft nondistended with resolution of epigastric tenderness, bowel sounds present limbs warm, no edema iv site ok Laboratory data: White blood cell count improved but remains elevated at 15,000 with predominance of neutrophils Liver enzymes and bilirubin normal Objective: Vital Signs Temp Pulse Resp BP Pulse Ox 36.9 C 72 18 132/78 H 89 L 12/26/17 08:21 12/26/17 10:19 12/26/17 08:21 12/26/17 08:21 12/26/17 08:21 Laboratory Results 12/26/17 04:28 12/25/17 04:36 12/25/17 12/26/17 12/27/17 06:59 06:59 06:59 Intake Total 3070 Output Total 400 1225 Balance -400 1845 PT 18.3 SEC (12.0-15.0) H 12/24/17 04:25 INR 1.50 (0.83-1.16) H 12/24/17 04:25 ICD10 Worksheet Patient Problems: Problems Problem Status Onset Abdominal pain Acute Pancreatitis Acute Anxiety disorder Active Atrial fibrillation and flutter Active Benign hypertension Active CAD - Coronary arteriosclerosis Active Dyslipidemia Active A-fib Acute
[2017-12-26] MEDS: ATORVASTATIN CALCIUM 40 MG TAB PO SCH (21:27)
[2017-12-26] MEDS: MELATONIN 3 MG TAB PO SCH (21:27)
[2017-12-26] MEDS: HYDROmorphone HCL/NS 0.5 MG/ML SYR IVP PRN (21:28)
[2017-12-27] MEDS: AMPICILLIN/SULBACTAM 3 GM VIAL IV SCH ×5 (00:16→23:10)
[2017-12-27 05:00] LABS: PLATELET COUNT 175 10^3/uL (150-400)
[2017-12-27] MEDS: LEVOTHYROXINE 137 MCG TAB PO SCH (07:15)
--- NOTE | 2017-12-27 07:37 | PDCONSULT ---
Personal Fitness Trainer Note: Atul is resting comfortably/denies pain temps are down and wbc continues to drop Day #2 Unasyn Bili is up slightly to 1.5/AST and ALT up slightly as well. We discussed lap cholecystectomy + IOC and possible post op ERCP if CBD stones identified. Informed consent was obtained. Renny Yadav MD, FACS
[2017-12-27] MEDS: DILTIAZEM 30 MG TAB PO SCH ×2 (09:05→20:47)
[2017-12-27] MEDS: SOTALOL HCL 80 MG TAB PO SCH ×2 (09:17→20:47)
[2017-12-27] MEDS: VENLAFAXINE HCL 75 MG TAB PO SCH ×2 (09:17→20:46)
[2017-12-27] MEDS: VITAMIN B COMPLEX 1 EA CAP/TAB PO SCH (09:18)
[2017-12-27] MEDS: PANTOPRAZOLE SODIUM 40 MG TAB PO SCH (09:19)
[2017-12-27] MEDS ORDERED: LR 1,000 ML IV ONE (11:48)
[2017-12-27] MEDS ORDERED: IOPAMIDOL (ISOVUE-M 300) 15 ML VIAL ONE (11:53)
[2017-12-27] MEDS ORDERED: BUPIVACAINE 0.25% 30 ML SDV ONE (11:53)
[2017-12-27] MEDS ORDERED: MIDAZOLAM 2 MG/2 ML VIAL IVP ONE (12:01)
--- NOTE | 2017-12-27 12:03 | PDANEPAE ---
ANE History of Present Illness pancreatitis ANE Past Medical History - Pulmonary History Hx Oxygen in Use at Home: No Hx Sleep Apnea: Yes - Endocrine History Hx Diabetes: No - Chronic Pain History Chronic Pain: No ANE Review of Systems Review of Systems: ANE Patient History - Allergies Allergies/Adverse Reactions: No Known Allergies Allergy (Verified 04/30/16 18:19) - Home Medications Home Medications: C/E/Zn/Cu/OM3/DHA/EPA/LUT/ZEAX [Preservision Areds 2 Softgel] 1 each PO BID 07/09 [Last Taken 12/23/17 21:00] Dabigatran Etexilate Mesyl [Pradaxa 150 MG (*)] 150 mg PO BID 04/07/12 [Last Taken 12/23/17 21:00] Multivitamins [Multivitamin (*)] 1 each PO DAILY 04/07/12 [Last Taken 12/23/17] Diazepam [Valium 5 MG (*)] 5 mg PO DAILY PRN 11/06/13 [Last Taken 08/20/16 21:00 ] Herbals/Supplements -Info Only 1 each PO AD 11/06/13 [Last Taken Unknown] Atorvastatin Calcium [Lipitor 40 mg (*)] 40 mg PO HS 08/21/16 [Last Taken ] Bisacodyl [Bisacodyl (*)] 10 mg PO PRN PRN 08/21/16 [Last Taken Unknown] Cholecalciferol Vit D3 [Vitamin D3 2000 units tab (OTC)] 2,000 units PO DAILY [Last Taken 12/23/17] Diltiazem HCl 30 mg PO BID 08/21/16 [Last Taken 12/23/17 21:00] Magnesium Oxide [Magnesium Oxide 400 mg (*)] 400 mg PO HS 08/21/16 [Last Taken 12/23/17] Melatonin [Melatonin 3 MG (*)] 3 mg PO HS 08/21/16 [Last Taken 12/23/17] Vitamin B Complex [B Complex] 1 each PO DAILY 08/21/16 [Last Taken 12/23/17] diphenhydrAMINE [Benadryl 25 MG (*)] 25 mg PO HS 08/21/16 [Last Taken 12/23/17] valACYclovir [Valtrex (*)] 1,000 mg PO DAILY PRN 08/21/16 [Last Taken Unknown] Prazosin HCl [Minipress] 4 mg PO HS 12/24/17 [Last Taken 12/23/17] Sotalol HCl [Betapace 80 MG (*)] 80 mg PO BID 12/24/17 [Last Taken 12/23/17 21: 00] Venlafaxine HCl [Venlafaxine 75MG (*)] 150 mg PO BID 12/24/17 [Last Taken 21:00] - Smoking Hx Smoking Status: Never smoked - Alcohol Use Alcohol Use: Rarely ANE Labs/Vital Signs - Labs Result Diagrams: 12/27/17 04:43 12/27/17 04:43 - Vital Signs Blood Pressure: 121/79 Heart Rate: 56 Respiratory Rate: 16 O2 Sat (%): 94 Height: 182.88 cm Weight: 105.5 kg ANE Physical Exam - Airway Neck exam: FROM Mallampati Score: Class 1 Mouth exam: normal dental/mouth exam - Pulmonary Pulmonary: no respiratory distress - Cardiovascular Cardiovascular: regular rate and rhythym - ASA Status ASA Status: III ANE Anesthesia Plan Anesthesia Plan: general endotracheal anesthesia
[2017-12-27] MEDS ORDERED: ROCURONIUM 50 MG/5 ML VIAL ONE (12:08)
[2017-12-27] MEDS ORDERED: ONDANSETRON 4 MG/2 ML VIAL ONE (12:08)
[2017-12-27] MEDS ORDERED: HYDROmorphONE/DILAUDID 2 MG/ML INJ ONE (12:08)
[2017-12-27] MEDS ORDERED: fentaNYL 100 MCG/2 ML INJ ONE ×2 (12:08)
[2017-12-27] MEDS ORDERED: DEXAMETHASONE 4 MG/ML VIAL ONE (12:08)
[2017-12-27] MEDS ORDERED: PROPOFOL 200 MG/20 ML VIAL ONE (12:08)
--- NOTE | 2017-12-27 14:01 | POSTANESTH ---
Post Anesthetic Evaluation Cardiovascular Status: Normal, Stable Respiratory Status: Normal, Stable Level of Consciousness/Mental Status: Can Participate in Eval Pain Control: Adequate, Prn Tx Ordered Nausea/Vomiting Control: Adequate, Prn Tx Ordered Complications Possibly Related to Anesthesia: None Noted
--- NOTE | 2017-12-27 14:23 | POSTOPPROG ---
Post Op Note Date of Operation: 12/27/17 Surgeon: Av Yadav (, FACS) Anesthesiologist: Singh Woodard MD Anesthesia: GET(General Endotracheal) Pre-op Diagnosis: cholecystitis/pancreatitis Post-op Diagnosis: same Procedure: lap cholecystectomy Findings: inability to perform cholangiogram/tumor of the second portion of the duo Inf/Abcess present in the surg proc area at time of surgery?: Yes Depth: Organ Space EBL: Minimal
--- NOTE | 2017-12-27 15:02 | GOP ---
[f rep st] OPERATIVE REPORT DATE OF OPERATION: SURGEON: Av Ydaav MD, FACS ANESTHESIA: General endotracheal. ANESTHESIOLOGIST: Dr. Akilah Woodard. PREOPERATIVE DIAGNOSIS: 1. Cholecystitis and gallstones. 2. Gallstone pancreatitis. POSTOPERATIVE DIAGNOSIS: 1. Cholecystitis and gallstones. 2. Gallstone pancreatitis. 3. 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 PROCEDURE PERFORMED: Laparoscopic cholecystectomy. FINDINGS: ESTIMATED BLOOD LOSS: 10 cc. INDICATIONS: Patient is a 77-year-old male, presented with pancreatitis on 11/2017. He was taking Pradaxa for chronic atrial fibrillation/flutter and was made n.p.o. initially, and his Pradaxa was held. He was confirmed to have gallstones and had leukocytosis and low-grade fevers, was started on Unasyn 3 g q.6 hours and clinically improved over the ensuing 72 hours. Patient was brought to the operating room now for cholecystectomy, operative cholangiogram and possible common bile duct exploration. DESCRIPTION OF PROCEDURE: After informed consent was obtained, the patient was brought to the operating room and placed under general anesthesia. The abdomen was prepped and draped in the usual sterile fashion. Before proceeding, a time- out and identification of patient was performed. 0.25% Marcaine was used to infiltrate the abdominal wall above the umbilicus as the patient had had a prior umbilical hernia repair with mesh. A curvilinear transverse incision was made. Dissection was carried out down to the abdominal wall and peritoneal cavity entered under direct visualization, establishing a 12 mm port above the umbilicus. The upper edge of the mesh was identified at the time of dissection. This allowed a pneumoperitoneum to be established with CO2 gas to a pressure of 15 mmHg. A 30-degree scope was introduced and the peritoneal cavity was visualized. Additional 5 mm ports were placed in the subxiphoid position to the right of the falciform ligament, in the right upper quadrant midclavicular line, and right upper quadrant anterior axillary line. This allowed introduction of atraumatic grasping forceps. The gallbladder was somewhat decompressed. It was grabbed by the fundus and retracted cephalad, elevating the liver, which appeared normal as well. The duodenum was adherent to the infundibulum of the gallbladder and I presumed that this was due to the patient's recent pancreatitis. Careful blunt dissection was used to peel the duodenum away from the gallbladder and in the process, I noted an approximately 8-9 mm whitish protuberant nodule from the 2nd portion of the duodenum. This was somewhat firm and the duodenum appeared inflamed. 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 The infundibulum of the gallbladder was then grasped and manipulated anteriorly and posteriorly, such that the peritoneum could be dissected away from the cystic duct. Cystic duct was quite small and was clipped near the gallbladder, incised and noted to be fused with the cystic artery, requiring immediate hemoclipping distally, obviating the potential for a cholangiogram. The gallbladder was then dissected away from the liver edge with minimal bleeding. It was retrieved through the umbilical port site intact and submitted to Pathology for permanent section. The operative field was irrigated. Hemostasis appeared secure upon completion of the procedure. The pneumoperitoneum was evacuated. The supraumbilical fascial defect was repaired with interrupted 0 Vicryl sutures. The subcutaneous tissues were closed with 3-0 Vicryl suture and the skin of all incisions closed with 4-0 Monocryl suture in a subcuticular fashion. Topical Mastisol and Steri-Strips were applied. Needle, sponge, and instrument counts were correct. COMPLICATIONS: None. /[id number]/MODL MTDD
--- NOTE | 2017-12-27 16:57 | ASMTCMCOM ---
CM Note CM Note Notes: Pt had lap sweta today. A possible tumor was found. Pt's need are TBD at this time.CM will continue to follow. Date Signed: 12/27/2017 04:56 PM Electronically Signed By:Lorraine Johnson LCSW
--- NOTE | 2017-12-27 19:04 | HOSPPROG ---
Hospitalist Progress Note Assessment/Plan: DIAGNOSES: -acute gallstone pancreatitis without complications, * Clinically resolving well at this time -evidence of cholecystitis and gallstones by ultrasound * Now status post laparoscopic cholecystectomy today without complication -history of AFib status post ablation, stable at this time * Pradaxa had been held for his surgery, can resume that tomorrow -history of PTSD no issues here at this time -history of sleep apnea with CPAP * He is having some postoperative hypoxemia that is mild without shortness of breath. He will continue CPAP we have added some oxygen here PLANS: -diet as recommended by Dr. Yadav -resume Pradaxa tomorrow and less there is some indication of any bleeding troubles -most likely discharge tomorrow -oxygen is needed right now and continue his CPAP -I recommended he do as much ambulation as possible now in the postoperative setting -low-fat diet for the next week or 2 SUBJECTIVE: Pain completely resolved, is now hungry No fevers or other acute symptoms OBJECTIVE Vitals reviewed: Stable without fever Carbonation Tester, my review: Exam: alert oriented skin warm dry color ok resps not labored lungs clear BSs heart regular abd soft nondistended with resolution of epigastric tenderness, bowel sounds present limbs warm, no edema iv site ok Laboratory data: White blood cell count improved but remains elevated at 15,000 with predominance of neutrophils Liver enzymes and bilirubin normal Objective: Vital Signs Temp Pulse Resp BP Pulse Ox 36.7 C 56 L 19 105/69 87 L 12/27/17 18:16 12/27/17 18:16 12/27/17 18:16 12/27/17 18:16 12/27/17 18:16 Laboratory Results 12/27/17 04:43 12/27/17 04:43 12/26/17 12/27/17 12/28/17 06:59 06:59 06:59 Intake Total 3070 700 290 Output Total 1225 Balance 1845 700 290 PT 18.3 SEC (12.0-15.0) H 12/24/17 04:25 INR 1.50 (0.83-1.16) H 12/24/17 04:25 ICD10 Worksheet Patient Problems: Problems Problem Status Onset Abdominal pain Acute Pancreatitis Acute Anxiety disorder Active Atrial fibrillation and flutter Active Benign hypertension Active CAD - Coronary arteriosclerosis Active Dyslipidemia Active A-fib Acute
[2017-12-27] MEDS: MELATONIN 3 MG TAB PO SCH (20:46)
[2017-12-27] MEDS: ATORVASTATIN CALCIUM 40 MG TAB PO SCH (20:46)
[2017-12-27] MEDS ORDERED: ENOXAPARIN 100 MG/ML SYR SC SCH (21:00)
[2017-12-27] MEDS: DIAZEPAM 5 MG TAB PO PRN (22:45)
[2017-12-28] MEDS: AMPICILLIN/SULBACTAM 3 GM VIAL IV SCH (06:04)
[2017-12-28] MEDS: LEVOTHYROXINE 137 MCG TAB PO SCH (06:07)
[2017-12-28] MEDS: DILTIAZEM 30 MG TAB PO SCH (08:05)
[2017-12-28] MEDS: PANTOPRAZOLE SODIUM 40 MG TAB PO SCH (08:06)
[2017-12-28] MEDS: SOTALOL HCL 80 MG TAB PO SCH (08:06)
[2017-12-28] MEDS: VITAMIN B COMPLEX 1 EA CAP/TAB PO SCH (08:07)
[2017-12-28] MEDS: VENLAFAXINE HCL 75 MG TAB PO SCH (08:10)
[2017-12-28] MEDS: DABIGATRAN ETEXILATE MESYL 150 MG CAP PO SCH ×2 (08:11→08:15)
[2017-12-28 08:35] VITALS: BP 126/70
--- NOTE | 2017-12-28 08:38 | SOAPPROG ---
SOAP Progress Note Assessment/Plan: Assessment:clinically improved, tolerating diet, resolving pancreatitis no clinical evidence of retained stones Plan: Discharge home/FU my office one week outpatient EGD/EUS to evaluate possible duodenal mass We discussed diet, activity, wound care 12/26/17 06:53 12/28/17 08:29 Subjective: feeling better/tolerated low fat diet Objective: Vital Signs Temp Pulse Resp BP Pulse Ox 36.4 C 55 L 20 133/67 H 92 12/28/17 08:02 12/28/17 08:06 12/28/17 08:02 12/28/17 08:06 12/28/17 08:02 Laboratory Results 12/27/17 04:43 12/27/17 04:43 12/27/17 12/28/17 12/29/17 05:59 05:59 05:59 Intake Total 700 840 Output Total 925 Balance 700 -85 PT 18.3 SEC (12.0-15.0) H 12/24/17 04:25 INR 1.50 (0.83-1.16) H 12/24/17 04:25 Physical Exam - Physical Exam General Appearance: no apparent distress Abdomen: non-tender, soft, other (incisions o.k.) ICD10 Worksheet Patient Problems: Problems Problem Status Onset Abdominal pain Acute Pancreatitis Acute Anxiety disorder Active Atrial fibrillation and flutter Active Benign hypertension Active CAD - Coronary arteriosclerosis Active Dyslipidemia Active A-fib Acute
--- NOTE | 2017-12-28 16:07 | GDS ---
[f rep st] DISCHARGE SUMMARY DISCHARGE DIAGNOSES: Include: 1. Acute cholecystitis, status post cholecystectomy. 2. Acute gallstone pancreatitis. 3. Permanent atrial fibrillation, status post ablation. 4. History of post-traumatic stress disorder. 5. Sleep apnea. HISTORY OF PRESENT ILLNESS: This is a 77-year-old male who presents with abdominal pain. For detail s of patient's initial presentation please see the history and physical dated 12/24/2017. CONSULTATIVE SERVICES: General Surgery, Dr. Yadav. PROCEDURES: On 12/27/2017, patient underwent laparoscopic cholecystectomy. HOSPITAL COURSE BY ISSUE: 1. Acute gallstone pancreatitis: Patient presented with abdominal pain AND was evaluated by both [facility] medicine and general surgery. It was determined to take the patient to the operating room. Cm e had an uncomplicated cholecystectomy. Tolerating normal oral intake without pain medications the 1 st day postop. He is being discharged with outpatient followup with Dr. Yadav. 2. Acute cholecystitis: Patient was initiated on IV antibiotics. On the day of disposition after h is uncomplicated cholecystectomies, he is afebrile with improving leukocytosis the day before. He is being discharged without oral antibiotics, to follow with Dr. Yadav in the outpatient clinic. MEDICATIONS AT DISPOSITION: Please reference the med rec printed on 12/28/2017. FOLLOWUP APPOINTMENTS: Include: 1. With Dr. Yadav in 1-2 weeks for post-cholecystectomy followup. 2. With his outpatient primary care provider for ongoing management of his medical comorbidities. PENDING STUDIES: At the time of this dictation, none. TIME SPENT: I spent greater than 30 minutes in the planning and coordination of this discharge. /[id number]/MODL
--- NOTE | 2017-12-28 18:37 | ASDISCHSUM ---
Discharge Information Plan Status:Home with No Needs Medically Cleared to Leave:12/28/2017 Discharge Date:12/28/2017 09:15 AM CM D/C Disposition:Home, Routine, Self-Care ADT D/C Disposition:Home, Routine, Self-Care Projected Discharge Date:12/28/2017 09:15 AM Transportation at D/C:Family Discharge Delay Reason: Follow-Up Date:12/28/2017 09:15 AM Discharge Slot:2 - 12:01 pm - 18:00 pm Final Diagnosis:Acute cholecystitis s/p sweta, acute gallstones pancreatitis, permanent afib, PTSD, sleep apnea Placement Information Patient Contact Information Contact Name:ZULLY Relationship: Address:[address] [place] [address] City:[place] Alternate Phone: [facility]/Zip Code:[place] [address] Email: Financial Information Financial Class:Medicare Advantage Plans Primary Plan Desc:[facility] ADVANTAGE PLANS Primary Plan Number:[id number] Secondary Plan Desc: Secondary Plan Number: Assessment Information [facility] CM Progress Note CM Note CM Note Notes: Chart reviewed. 77 year old male in with back pain. R/O pancreatitis. Discharge needs to be determined. Anticipate he will be independent. CM to follow. Date Signed: 12/24/2017 05:03 PM Electronically Signed By:Anabelle Smart RN [facility] CM Progress Note CM Note CM Note Notes: Pt had lap sweta today. A possible tumor was found. Pt's need are TBD at this time.CM will continue to follow. Date Signed: 12/27/2017 04:56 PM Electronically Signed By:Lorraine Johnson LCSW [facility] CM Progress Note CM Note CM Note Notes: Per MD notes, pt to discharge home independently with no identified needs. Pt to follow up as directed. Unable to have pt sign . CM available for any further issues or concerns. Discharge plan: Home independently Date Signed: 12/28/2017 06:35 PM Electronically Signed By:Kasandra Dietz RN Intervention Information Intervention Type:CHRISSIE-Signed Date of Service:12/24/2017 03:09 PM Patient Type:Observation Staff Member:Bren Peter Hours: Discipline: Severity: Comment:
== END 2017-12-28 09:15 | disposition home or self-care (01) | DRG 417 ==
LOC: OBSVTOIN 05:43 → INTOOBSV 05:43 → UNDOADMOB 05:43 → F1N 06:19 → OBSVTOIN 12-25 17:52 → UNDODISIN 12-28 09:15
PROVIDERS: ADMIT Family Medicine; ATTEND Family Medicine
PROC: 0FT44ZZ Resection of Gallbladder, Percutaneous Endoscopic Approach (ICD-10-PCS; principal; 2017-12-24)
DX: K80.00 Calculus of gallbladder with acute cholecystitis without obstruction (principal); K85.10 Biliary acute pancreatitis without necrosis or infection; I48.2 Chronic atrial fibrillation; I25.10 Atherosclerotic heart disease of native coronary artery without angina pectoris; G47.33 Obstructive sleep apnea (adult) (pediatric); I10 Essential (primary) hypertension; F43.10 Post-traumatic stress disorder, unspecified; E03.9 Hypothyroidism, unspecified; K21.9 Gastro-esophageal reflux disease without esophagitis; Z79.01 Long term (current) use of anticoagulants
CPT/HCPCS: 80305; 82947-QW; 96374; G0378; G0480; J0295; J1100; J1170; J1650; J2250; J2405; J2704; J3010; Q9967